=== PATIENT | male | born 1955 | race Two or more races ===

== ENCOUNTER 2016-07-11 18:30 | Emergency (ER) | payer SELFPAY ==
--- NOTE | 2016-07-14 01:15 | ER ---
ADMIT: 07/11/2016 RM/LOC: ER [facility] MR#: [id number] [id number] [place], [place] [id number] DIANA KELLY [address] [place] [address] Emergency Room Report SEX: M AGE: 60 : 1955 DATE: 07/11/2016 For chief complaint, history of present illness, past medical history, medications, allergies, review of systems, please see my T-sheet. INTERIM HISTORY: The patient is a 60-year-old male, who does not speak any Slovak, who reports that he has a facial droop that started yesterday. It has been going on for 24 hours. No other symptoms are involved. There is no weakness unilateral. There has been pain in the head. He does have a history of hypertension, but has been off medications for quite some time. PHYSICAL EXAMINATION: VITAL SIGNS: Blood pressure is 186/116, heart rate 81, respirations 16, and temp 96.8. Physical exam is otherwise unremarkable. He has left-sided facial droop that involves the forehead. Refractory Technician strengths are equal bilaterally. IMAGING DATA: Head CT shows no evidence of intracranial mass, lesion, or hemorrhage. IMPRESSION: 1. Chopra palsy. 2. Hypertension. PLAN: The patient was given clonidine here in the emergency room and his recheck of the blood pressure is 160/104 and he is feeling better. Home rest. Activity as tolerated. He is to get back on medication for blood pressure. Return if problems or symptoms worsen. I suspect he was given instructions on being well within. MAURILIO Akhtar / Brodie Whitlock MD / antoine JOB #: [id number] CC: Bimal Rivera MD, Attending Physician Lopez Grajeda MD, Family Physician
== END 2016-07-11 19:20 | disposition home or self-care (01) ==
LOC: ER 18:30
DX: G51.0 Bell's palsy (principal); I10 Essential (primary) hypertension; F17.210 Nicotine dependence, cigarettes, uncomplicated; Z79.82 Long term (current) use of aspirin